=== PATIENT | female | born 1970 | race African-American/Black ===

== ENCOUNTER 2020-04-07 05:13 | Emergency (ER) | payer MEDICARE, OTHER ==
[2020-04-07] MEDS ORDERED: METHYLPREDNISOLONE SOD SUCC 125 MG/2ML VIAL INJ STA (05:18)
--- NOTE | 2020-04-07 05:21 | Emergency Department Note ---
History of Present Illnes History of Present Illness Chief Complaint: Extremity Trauma/Pain History of Present Illness This is a 50 year old female with PMH for RA and FM presents to the ED for 2 month h/o of R shoulder pain. patient seen previously by PCP in the past with little to no relief from steroid shot . Historian: Patient Arrival Mode: Car Onset (how long ago): month(s) Radiation: Reports non-radiation Duration (how long): month(s) Progression: worsening Relieving factors: immobilization, rest Exacerbating factors: movement Associated symptoms: Reports denies other symptoms Past Medical/Family History Physician Review I have reviewed the patient's past medical and family history. Any updates have been documented here. Past Medical History Recent Fever: No Clinical Suspicion of Infectio: No Other Medical History: Fibromyalgias RA Social History Smoking Cessation: Never Smoker Alcohol Use: None Any Illegal Drug Use: No Review of Systems Review of Systems Constitutional: Reports no symptoms EENTM: Reports no symptoms Cardiovascular: Reports no symptoms Respiratory: Reports no symptoms Gastrointestinal: Reports no symptoms Genitourinary: Reports no symptoms Musculoskeletal: Reports joint pain Integumentary: Reports no symptoms Neurological: Reports no symptoms Psychological: Reports no symptoms Endocrine: Reports no symptoms Hematological/Lymphatic: Reports no symptoms Physical Exam Related Data Allergies: Coded Allergies: No Known Allergies (Unverified , 04/07/20) Vital signs reviewed: Yes Physical Exam CONSTITUTIONAL Constitutional: Present well-developed, Present well-nourished HENT HENT: Present normocephalic, Present atraumatic, Present oropharynx clear/moist, Present nose normal HENT L/R: Present left ext ear normal, Present right ext ear normal EYES Eyes: Reports PERRL, Reports conjunctivae normal NECK Neck: Present ROM normal PULMONARY Pulmonary: Present effort normal, Present breath sounds normal CARDIOVASCULAR Cardiovascular: Present regular rhythm, Present heart sounds normal, Present capillary refill normal, Present normal rate, Present tachycardia GASTROINTESTINAL Abdominal: Present soft, Present nontender, Present bowel sounds normal GENITOURINARY Genitourinary: Present exam deferred SKIN Skin: Present warm, Present dry MUSCULOSKELETAL Musculoskeletal: Present tenderness (R shoulder) NEUROLOGICAL Neurological: Present alert, Present oriented x 3, Present no gross motor or sensory deficits PSYCHOLOGICAL Psychological: Present mood/affect normal, Present judgement normal Results Imaging Imaging results reviewed: Yes Impressions [facility] [place] [address] Patient Name: SHAWNEE HOPSON MR #: [id number] : 1970 Age/Sex: 50/F Req #: [id number] Adm Physician: Ordered by: SALENA ZAVALA DO Report #: [id number] Location: ER Room/Bed: __ Procedure: [id number] DX/SHOULDER RIGHT COMPLETE Exam Date: Exam Time: REPORT STATUS: Signed SHOULDER RIGHT COMPLETE - 2 views HISTORY: Pain COMPARISON: None available. FINDINGS: Bones: No acute displaced fracture. Osseous alignment is within normal limits. Joints: The joint spaces are well-maintained. Soft tissues: The soft tissues appear unremarkable. IMPRESSION: No acute radiographic abnormality. Signed by: Dr. Massimo Razo MD on 04/07/2020 5:58 AM Dictated By: MASSIMO RAZO MD 7 Transcribed By: MANUEL on 04/07/20557 COPY TO: SALENA ZAVALA DO~ Assessment & Plan Medical Decision Making MDM Diff Dx : Sprain, Rotator cuff injury, RA flare up , FM flare up, septic joint Assessment & Plan Final Impression: (1) Sprain of right shoulder Depart Disposition: HOME, SELF-skilled nursing Meds Active Scripts Prednisone (PREDNISONE) 20 Mg Tab, 40 MG PO DAILY, #4 TAB Prov:LI NAGEL DO 04/07/20 Tramadol Hcl (ULTRAM) 50 Mg Tablet, 50 MG PO Q6HR PRN for MUSCLE SPASMS, #14 TAB Prov:LI NAGEL DO 04/07/20 SALENA ZAVALA DO Apr 07, 2020 05:21
[2020-04-07] MEDS ORDERED: KETOROLAC TROMETHAMINE 60 MG/2 ML VIAL IM ONE (05:30)
--- NOTE | 2020-04-07 06:01 | Diagnostic Imaging Report ---
SHOULDER RIGHT COMPLETE - 2 views HISTORY: Pain COMPARISON: None available. FINDINGS: Bones: No acute displaced fracture. Osseous alignment is within normal limits. Joints: The joint spaces are well-maintained. Soft tissues: The soft tissues appear unremarkable. IMPRESSION: No acute radiographic abnormality. Signed by: Dr. Massimo Stovall MD on 04/07/2020 5:58 AM
[2020-04-07] MEDS ORDERED: PREDNISONE20 MG PO (06:15)
[2020-04-07] MEDS ORDERED: ULTRAM50 MG PO (06:15)
--- OUTSIDE RECORDS SUMMARY | 2020-04-07 06:17 | XMS REPORT | Continuity of Care Document ---
Author Author [facility] Organization [facility] Address [address] [place] [address] Phone Unavailable Care Team Providers Care Internal Combustion Engine Assembler Name Role Phone SALENA ZAVALA Unavailable Payers Payer Name Policy Type Policy Number Effective Date Expiration Date S ource Problems This patient has no known problems. Allergies, Adverse Reactions, Alerts Allergy Name Allergy Type Status Severity Reaction(s) Onset Date Inacti ve Date Treating Clinician Comments Source No Known Allergies DA Active U 2018-06-28 00:00:00 [facility] No Known Allergies DA Active U 2018-01-18 00:00:00 [facility] Medications This patient has no known medications. Procedures This patient has no known procedures. Encounters Start Date/Time End Date/Time Encounter Type Admission Type [facility] Care Department Encounter ID Source 2017-09-30 13:44:00 2017-09-30 13:44:00 Outpatient [facility] [id number] [facility] Results Test Description Test Time Test Comments Results Result Comments Source SHOULDER RIGHT COMPLETE 2020-04-07 05:58:00 [facility] [address] [place], [place] [address] Patient Name: SHAWNEE HOPSON MR #: [id number] : 1970 Age/Sex: 50/F Req #: [id number] Adm Physician: Ordered by: SALENA ZAVALA DO Report #: [id number] Location: ER Room/Bed: Procedure: [id number] DX/SHOULDER RIGHT COMPLETE Exam Date: Exam Time: REPORT STATUS: Signed SHOULDER RIGHT COMPLETE - 2 views HISTORY: Pain COMPARISON: None available. FINDINGS: Bones: No acute displaced fracture. Osseous alignment is within normal limits. Joints: The joint spaces are well-maintained. Soft tissues: The soft ti ssues appear unremarkable. IMPRESSION: No acute radiographic abnormality. Signed by: Dr. Massimo Razo MD on 04/07/2020 5:58 AM Dictated By: MASSIMO RAZO MD 7 Transcribed By: MANUEL on 04/07/20557 COPY TO: SALENA ZAVALA DO - CT LOWER EXTRM W/CON LT 2018-11-28 15:09:00 Name: SHAWNEE HOPSON [facility] : 1970 Age/S: 48 / F [address] [facility] Unit #: [id number] Loc: [place] [address] Phys: LALA SAXENA MD Acct: [id number] Dis Date: Status: REG ER PHONE #: [phone] Exam Date: 11/28/2018 1459 FAX #: [phone] Reason: pain, swelling EXAMS: CPT CODE: [id number] CT LOWER EXTRM W/[place] [address] REASON FOR EXAM: pain, swelling EXAM ORDER DATE: 11/28/2018 12:21 PM Ordering M.D.: LALA SAXENA MD PROCEDURE: - CT LOWER EXTRM W/CON LT FINDINGS: CT images of the left lower extremity were obtained with IV contrast at 2.5mm. Reconstructed coronal and sagittal images were also provided. Dose modulation, iterative reconstruction, and/or weight based adjustment of the MA/KV was utilized to reduce the radiation dose to as low as reasonably achievable. Chronic fracture of the distal left fibula with multiple christiano holes noted. Mild soft tissue swelling in bilateral malleoli more pronounced on the left with a probable open wound in the lateral malleolus. No evidence of cortical erosion to suggest acute osteomyelitis. No evidence of focal abscess collection or fluid collection IMPRESSION: Soft tissue swelling more pronounced in the lateral malleolus with probable small nonhealing ulcer versus skin defect. No evidence of acute osteomyelitis, focal fluid collection, or abscess at 1509 Reported and signed by: Bryson Ragsdale M.D. CC: LALA SAXENA MD Technologist:BRODERICK CARMICHAEL, RT(R) CT CTDI: DLP: Trnscb D ate/Time: 11/28/2018 (1509) t.[email or web address].VTL Orig Print D/T: S: 11/28/2018 (9776) CTDI: DLP: PAGE 1 Signed Report CBC W/O DIFF 2018-11-28 12:06:00 Test Item WHITE BLOOD CELL (test code = WBC) 6.6 K/mm3 4.5-12.5 N RED BLOOD CELL (test code = RBC) 4.50 mill/mm3 3.7-5.2 N HEMOGLOBIN (test code = HGB) 9.5 gram/dL 11.5-15.5 L HEMATOCRIT (test code = HCT) 31.6 % 36.0-46.0 L MEAN CELL VOLUME (test code = MCV) 70.2 fL 80-98 L MEAN CELL HGB (test code = MCH) 21.1 picogram 27.0-33.0 L MEAN CELL HGB CONCETRATION (test code = MCHC) 30.1 gram/dL 33.0-36. 0 L RED CELL DISTRIBUTION WIDTH (test code = RDW) 16.3 % 11.6-16. 2 H PLATELET COUNT (test code = PLT) 346 K/mm3 150-450 N MEAN PLATELET VOLUME (test code = MPV) 10.8 fL 6.7-11.0 N C REACTIVE [id number] 11:54:00* Test Item Value Reference Range Interpretation Comments C REACTIVE PROTEIN (test code = CRP) 4.80 mg/dL 0-0.3 H BASIC METABOLIC [id number] 11:49:00* Test Item Value Reference Range Interpretation Comments SODIUM (test code = NA) 136 mmol/L 136-145 N POTASSIUM (test code = K) 3.8 mmol/L 3.5-5.1 N CHLORIDE (test code = CL) 105.0 mmol/L 98-107 N CARBON DIOXIDE (test code = CO2) 25.0 mmol/L 21-32 N ANION GAP (test code = GAP) 9.8 10-20 L GLUCOSE (test code = GLU) 94 mg/dL 74-106 N BLOOD UREA NITROGEN (test code = BUN) 11 mg/dL 7-18 N GLOMERULAR FILTRATION RATE (test code = GFR) > 60 mL/min >=60 Estimated GFR by using Modified MDRD formula.Chronic kidney disease is defined as either kidney damageor GFR <60 mL/min/1.73 m2 for >3 months. CREATININE (test code = CREAT) 0.80 mg/dL 0.55-1.02 N Note change in reference range due to change in reagent. BUN/CREATININE RATIO (test code = BUN/CREA) 13.8 10-20 N CALCIUM (test code = CA) 8.8 mg/dL 8.5-10.1 N HCG SERUM [id number] 11:49:00* Test Item Value Reference Range Interpretation Comments HCG SERUM QUAL (test code = HCGQL) NEGATIVE NEGATIVE This HCGQL test is NOT applicable for MALE patients.Check with nurse about probable order error.If Tumor Marker Test needed, nurse should order test "HCGTU"(Test #550.00760) BASIC METABOLIC [id number] 11:48:00* Test Item Value Reference Range Interpretation Comments SODIUM (test code = NA) 136 mmol/L 136-145 N POTASSIUM (test code = K) 3.8 mmol/L 3.5-5.1 N CHLORIDE (test code = CL) 105.0 mmol/L 98-107 N CARBON DIOXIDE (test code = CO2) mmol/L 21-32 ANION GAP (test code = GAP) 10-20 GLUCOSE (test code = GLU) mg/dL 74-106 BLOOD UREA NITROGEN (test code = BUN) mg/dL 7-18 GLOMERULAR FILTRATION RATE (test code = GFR) mL/min >=60 CREATININE (test code = CREAT) mg/dL 0.55-1.02 BUN/CREATININE RATIO (test code = BUN/CREA) 10-20 CALCIUM (test code = CA) mg/dL 8.5-10.1 HCG SERUM [id number] 11:48:00* Test Item Value Reference Range Interpretation Comments HCG SERUM QUAL (test code = HCGQL) NEGATIVE NEGATIVE This HCGQL test is NOT applicable for MALE patients.Check with nurse about probable order error.If Tumor Marker Test needed, nurse should order test "HCGTU"(Test #550.15638) BASIC METABOLIC [id number] 11:46:00* Test Item Value Reference Range Interpretation Comments SODIUM (test code = NA) 136 mmol/L 136-145 N POTASSIUM (test code = K) 3.8 mmol/L 3.5-5.1 N CHLORIDE (test code = CL) 105.0 mmol/L 98-107 N CARBON DIOXIDE (test code = CO2) mmol/L 21-32 ANION GAP (test code = GAP) 10-20 GLUCOSE (test code = GLU) mg/dL 74-106 BLOOD UREA NITROGEN (test code = BUN) mg/dL 7-18 GLOMERULAR FILTRATION RATE (test code = GFR) mL/min >=60 CREATININE (test code = CREAT) mg/dL 0.55-1.02 BUN/CREATININE RATIO (test code = BUN/CREA) 10-20 CALCIUM (test code = CA) mg/dL 8.5-10.1 HCG SERUM [id number] 11:46:00* Test Item Value Reference Range Interpretation Comments HCG SERUM QUAL (test code = HCGQL) NEGATIVE - XR ANKLE 3 + V [id number] 11:32:00 FAX: LALA SAXENA MD [place]: B St: PRE Name: SHAWNEE AGUIAR [facility] : [birth year] Age/S: 48/F [address] [facility] Unit #: [id number] Loc: [place] [address] Phys: LALA SAXENA MD Acct: [id number] Dis Date: Status: PRE ER PHONE #: [phone] Exam Date: 11/28/2018 1055 FAX #: [phone] Reason: ANKLE PAIN EXAMS: CPT CODE: [id number] XR ANKLE 3 + [place] [address] HISTORY: Ankle pain. COMPARISON: June 28, 2018. No acute fracture or dislocation. Prior pinning sites within the distal fibula and lateral malleolus as well within the medial malleolus. Ankle mortise is preserved. No osteochondral lesions. No joint fluid. Bone mineralization and soft tissues are within normal limits. IMPRESSION: No acute frac ture or dislocation. Prior pinning sites from prior plate and screws matt cement noted as described above. at 1132 Reported and signed by: Cody Snyder M.D. CC: LALA SAXENA MD Technologist: LAKSHMI RIVAS JR; STUDENT TECHNOLOGIST Trnscrd Date/Time/By: 11/28/2018 (1896) : By: [email or web address] Orig Print D/T: S: 11/28/2018 (0181) PAGE 1 Signed Report BASIC METABOLIC [id number] 12:59:00* Test Item Value Reference Range Interpretation Comments SODIUM (test code = NA) 138 mmol/L 136-145 N POTASSIUM (test code = K) 4.8 mmol/L 3.5-5.1 N CHLORIDE (test code = CL) 105.0 mmol/L 98-107 N CARBON DIOXIDE (test code = CO2) 23.0 mmol/L 21-32 N ANION GAP (test code = GAP) 14.8 10-20 N GLUCOSE (test code = GLU) 89 mg/dL 74-106 N BLOOD UREA NITROGEN (test code = BUN) 11 mg/dL 7-18 N GLOMERULAR FILTRATION RATE (test code = GFR) > 60 mL/min >=60 Estimated GFR by using Modified MDRD formula.Chronic kidney disease is defined as either kidney damageor GFR <60 mL/min/1.73 m2 for >3 months. CREATININE (test code = CREAT) 0.90 mg/dL 0.55-1.02 N Note change in reference range due to change in reagent. BUN/CREATININE RATIO (test code = BUN/CREA) 12.2 10-20 N CALCIUM (test code = CA) 8.6 mg/dL 8.5-10.1 N
[2020-04-07 07:02] VITALS: BP 132/89
== END 2020-04-07 06:35 | disposition home or self-care (01) ==
LOC: ER 05:30
DX: M25.511 Pain in right shoulder (principal); S43.401A Unspecified sprain of right shoulder joint, initial encounter; M06.9 Rheumatoid arthritis, unspecified; M79.7 Fibromyalgia
CPT/HCPCS: 73030; 99283; J1885; J2930

== ENCOUNTER 2022-01-14 11:58 | Emergency (ER) | payer MEDICARE, OTHER ==
[~2022-01-14] VITALS: Ht 170.2 cm; Wt 70.3 kg
[~2022-01-14 11:58] MED LIST: PREDNISONE20 MG PO; ULTRAM50 MG PO
== END 2022-01-14 13:43 | disposition home or self-care (01) ==
LOC: ER 12:44
DX: L02.211 Cutaneous abscess of abdominal wall (principal); I10 Essential (primary) hypertension; J44.9 Chronic obstructive pulmonary disease, unspecified; M06.9 Rheumatoid arthritis, unspecified; M79.7 Fibromyalgia; F17.210 Nicotine dependence, cigarettes, uncomplicated
CPT/HCPCS: 99283

== ENCOUNTER 2023-08-20 22:20 | Emergency (ER) | payer MEDICARE, OTHER ==
[~2023-08-20] VITALS: Ht 170.2 cm; Wt 70.3 kg
[2023-08-20] MEDS ORDERED: ACETAMINOPHEN 325 MG TAB PO ONE (22:45)
[2023-08-20 23:20] LABS: STREPTOCOCCUS GRP A ANTIGEN NEGATIVE (NEGATIVE)
[2023-08-20 23:34] LABS: INFLUENZAE A&B ANTIGEN (RAPID) NEGATIVE (NEGATIVE)
[2023-08-20 23:38] LABS: RESPIRATORY SYNC. VIRUS NEGATIVE (NEGATIVE)
[2023-08-20 23:45] VITALS: O2SAT 100
== END 2023-08-21 00:09 | disposition home or self-care (01) ==
LOC: ER 22:26
DX: R50.9 Fever, unspecified (principal); U07.1 COVID-19; R51.9 Headache, unspecified; I10 Essential (primary) hypertension; J44.9 Chronic obstructive pulmonary disease, unspecified; M06.9 Rheumatoid arthritis, unspecified; M79.7 Fibromyalgia
CPT/HCPCS: 71045; 83518; 87070; 87400; 87420; 99283; U0002